=== PATIENT | male | born 1985 | race Caucasian/White ===

== ENCOUNTER → 2020-09-23 | Outpatient (CLI) | payer OTHER ==
--- NOTE | 2020-09-24 11:45 | SLEEPCENT ---
NOCTURNAL POLYSOMNOGRAPHY DATE: 09/23/2020 ORDERED BY: IVON Lance Nocturnal polysomnography was performed for evaluation of sleep physiology in this patient with a history of excessive somnolence, nonrestorative sleep, irregular breathing patterns in sleep, and a history of asthma. 8 hours and 3 minutes of data were reviewed. There were 356.5 minutes of sleep identified. Sleep latency was prolonged at 38.5 minutes. REM latency was prolonged at 162 minutes. Sleep architecture showed fragmentation. There were two REM cycles. Overall sleep efficiency was 74.9%. The electrocardiogram showed a sinus rhythm with an average heart rate of 68 beats per minute; rate range 50 to 100. EEG showed fairly normal waveforms for wake and sleep. No focal events were identified. There were 39 respiratory events identified of 10 seconds in duration or greater for an apnea-hypopnea index of 6.6. The events were primarily obstructive, though 5 mixed and central apneas were also seen. Respiratory events were not exclusive to sleep stage and were not exclusive to any particular body position. Arousals from respiratory events when arousals from snoring were included occurred 3.5 times per hour. There was significant limb activity in the EMG leads, but no trains of events. Limb movement arousal index was borderline at 8.1. IMPRESSION: Obstructive sleep apnea syndrome (G47.33), apnea-hypopnea index 6.6. RECOMMENDATION: Given the patient's symptoms, referral [facility] to [facility] is recommended. In the interim, alcohol and sedative avoidance should be practiced and caution exercised during the operation of motor vehicles.
== END ==
LOC: M SLEEP 20:00
PROVIDERS: ATTEND Nurse Practitioner Family
DX: R06.83 Snoring (principal)

== ENCOUNTER → 2020-10-26 | Outpatient (CLI) | payer OTHER ==
--- NOTE | 2020-10-29 15:39 | SLEEPCENT ---
NOCTURNAL POLYSOMNOGRAPHY DATE: 10/26/2020 ORDERED BY: Bere Cohen. Nocturnal polysomnography was performed for the titration of pressure therapy in this patient with obstructive sleep apnea syndrome. For testing, a [employer]Med AirGel F20 full face mask of small size was used. 4 cm of water pressure was applied to the circuit, and the lights were extinguished. 7 hours and 30 minutes of data were reviewed. There were 382.5 minutes of sleep identified. Sleep latency was normal at 7.5 minutes. REM latency was mildly delayed at 145 minutes. Sleep architecture improved late in the study. There were 2 REM cycles noted. Overall sleep efficiency was 86.8%. The electrocardiogram showed a sinus rhythm with an average heart rate of 62 beats per minute. EEG showed normal waveforms for awake and sleep. Respiratory events were fully palliated with CPAP at a pressure of +5, and remaining measures of sleep physiology were normal. IMPRESSION: Obstructive sleep apnea syndrome (G47.33). RECOMMENDATION: Nightly use of pressure therapy, 5 cm of water. cc: ROSI Mendez
== END ==
LOC: M SLEEP 20:00
PROVIDERS: ATTEND Nurse Practitioner Family
DX: G47.33 Obstructive sleep apnea (adult) (pediatric) (principal)

== ENCOUNTER 2021-10-22 06:50 | Day surgery (SDC) | payer OTHER ==
[~2021-10-22] VITALS: Ht 170.2 cm; Wt 74.1 kg
[~2021-10-22 06:50] MED LIST: ADV500INH INH; ALBU2.5V10 INH; AMLO10TA PO; GABA600T4 PO; LEXA1TAB2 PO; LIDOCAINE 2% 100MG/5ML SDV (FOR ANES.) As Ordered ONE; NS 1,000 ML IV ONE; SING10TA32 PO; propofoL 200 MG/20 ML VIAL As Ordered ONE
[2021-10-22 08:58] VITALS: BP_SYST 124
[2021-10-22 09:00] VITALS: BP_DIAS 81
== END 2021-10-22 09:01 | disposition home or self-care (01) ==
LOC: M OPP 06:50
PROVIDERS: ATTEND Internal Medicine Gastroenterology
DX: K63.5 Polyp of colon (principal); K62.5 Hemorrhage of anus and rectum; K64.0 First degree hemorrhoids; K64.4 Residual hemorrhoidal skin tags; R19.7 Diarrhea, unspecified; Z79.51 Long term (current) use of inhaled steroids; Z79.891 Long term (current) use of opiate analgesic; Z79.899 Other long term (current) drug therapy; F17.210 Nicotine dependence, cigarettes, uncomplicated

== ENCOUNTER → 2022-07-23 | Outpatient (CLI) | payer OTHER ==
[~2022-07-23] MED LIST changes: +GASTROGRAFIN SOLUTION 30ML As Ordered ONE; +ISOVUE-370 76% 100ML VIAL As Ordered ONE; -LIDOCAINE 2% 100MG/5ML SDV (FOR ANES.) As Ordered ONE; +MONT-5 PO; -NS 1,000 ML IV ONE; -SING10TA32 PO; -propofoL 200 MG/20 ML VIAL As Ordered ONE
== END ==
LOC: M RAD 14:10
PROVIDERS: ATTEND Internal Medicine Hematology & Oncology
DX: R23.1 Pallor (principal)
CPT/HCPCS: 70491; 71260; 74177; Q9963; Q9967

== ENCOUNTER → 2022-08-19 | Outpatient (REF) ==
[~2022-08-19] MED LIST changes: -GASTROGRAFIN SOLUTION 30ML As Ordered ONE; -ISOVUE-370 76% 100ML VIAL As Ordered ONE
== END ==
LOC: M PLAIMG 09:42
PROVIDERS: ATTEND Internal Medicine
DX: R06.02 Shortness of breath (principal)

== ENCOUNTER → 2022-08-24 | Outpatient (REF) | LOC: M PLAIMG 09:57 | PROVIDERS: ATTEND Internal Medicine | DX: R06.02 Shortness of breath (principal); M25.521 Pain in right elbow; M25.522 Pain in left elbow; M25.531 Pain in right wrist; M25.532 Pain in left wrist; M25.541 Pain in joints of right hand; M25.542 Pain in joints of left hand; M25.511 Pain in right shoulder; M25.512 Pain in left shoulder; M25.571 Pain in right ankle and joints of right foot; M25.572 Pain in left ankle and joints of left foot ==

== ENCOUNTER → 2022-11-17 | Outpatient (CLI) | payer OTHER | LOC: M RAD 09:27 | PROVIDERS: ATTEND Physician Assistant Medical | DX: J33.9 Nasal polyp, unspecified (principal) ==

== ENCOUNTER 2023-06-10 09:14 | Day surgery (SDC) | payer OTHER ==
[~2023-06-10] VITALS: Ht 175.3 cm; Wt 81.0 kg
[2023-06-10] MEDS ORDERED: CHOL400T PO (09:34)
[2023-06-10] MEDS: LR 1,000 ML IV SCH (10:10)
[2023-06-10] MEDS ORDERED: MIDAZOLAM INJ 2MG/2ML VIAL As Ordered ONE (11:00)
[2023-06-10] MEDS ORDERED: propofoL 200 MG/20 ML VIAL As Ordered ONE (11:00)
[2023-06-10] MEDS ORDERED: fentaNYL 250 MCG/5 ML INJECTION As Ordered ONE (11:00)
[2023-06-10] MEDS ORDERED: ONDANSETRON 4MG 2ML VIAL As Ordered ONE (11:00)
[2023-06-10] MEDS ORDERED: ROCURONIUM BROMIDE 50MG/5ML VIAL As Ordered ONE (11:01)
[2023-06-10] MEDS ORDERED: LIDOCAINE 2% 100MG/5ML SDV (FOR ANES.) As Ordered ONE (11:01)
[2023-06-10] MEDS ORDERED: LIDOCAINE W/EPINEPHRINE 1% 20ML VIAL As Ordered ONE (11:32)
[2023-06-10] MEDS ORDERED: ACETAMINOPHEN 1000MG 100ML IV BAG As Ordered ONE (11:33)
[2023-06-10] MEDS ORDERED: dexmedeTOMIDine (4MCG/ML)200MCG/50ML BTL (PRECEDEX) As Ordered ONE (11:37)
[2023-06-10] MEDS ORDERED: LACRILUBE (AKWA TEARS) OPHTH OINT 3.5GM As Ordered ONE (11:40)
[2023-06-10] MEDS ORDERED: SUGAMMADEX SODIUM 500 MG/5 ML VIAL (BRIDION) As Ordered ONE (12:37)
[2023-06-10] MEDS: EPINEPHrine 1MG/ML INJ 30ML MD-VIAL As Ordered ONE (12:51)
[2023-06-10] MEDS: METHYLENE BLUE 0.5% (5MG/ML) 10 ML AMP (PROVAYBLUE) As Ordered ONE (12:52)
[2023-06-10] MEDS ORDERED: fentaNYL 100 MCG/2 ML INJECTION As Ordered ONE (14:53)
[2023-06-10] MEDS ORDERED: LR 1,000 ML IV SCH (15:40)
[2023-06-10] MEDS ORDERED: HYDROMORPHONE HCL 0.5 MG/ 0.5 ML SYRINGE IV PRN (15:40)
[2023-06-10] MEDS ORDERED: fentaNYL 100 MCG/2 ML INJECTION IV PRN (15:40)
[2023-06-10] MEDS: ONDANSETRON 4MG 2ML VIAL IV PRN (15:48)
[2023-06-10] MEDS: oxyCODONE 5MG TAB PO PRN (15:50)
[2023-06-10 16:28] VITALS: BP 143/86; TEMP 98.9; O2SAT 96
== END 2023-06-10 17:00 | disposition home or self-care (01) ==
LOC: M SDC 09:14
PROVIDERS: ATTEND Otolaryngology
DX: J32.8 Other chronic sinusitis (principal); J34.2 Deviated nasal septum; J33.8 Other polyp of sinus; J34.89 Other specified disorders of nose and nasal sinuses; I10 Essential (primary) hypertension; G47.30 Sleep apnea, unspecified; J45.909 Unspecified asthma, uncomplicated; Z79.899 Other long term (current) drug therapy; F17.210 Nicotine dependence, cigarettes, uncomplicated
CPT/HCPCS: 30520; 31253; 31267; 61782; 88300; 88305; C2625; J0131; J0171; J1100; J2250; J2405; J3010; Q9968

== ENCOUNTER → 2024-11-16 | Outpatient (REF) | payer OTHER ==
[~2024-11-16] MED LIST changes: -ADV500INH INH; +ADVA1AER10 INH; +AMLO-751 PO; -AMLO10TA PO; +CHOL400T PO; +GABA-1490 PO; -GABA600T4 PO
[2024-11-16 18:49] LABS: EOS # 0.2 10^3/uL (0.0-0.5); EOSINOPHIL,TOTAL CALCULATED 200.0 mm3 (0-740)
[2024-11-25 02:53] LABS: BERMUDA GRASS IGE 1.61 kU/L (<0.10); BIRCH IGE 0.60 kU/L (<0.10); D001 IGE D PTERONYSSINUS 0.19 kU/L (<0.10); D002-IGE D FARINAE 0.17 kU/L (<0.10); E001-IGE CAT DANDER 0.25 kU/L (<0.10); E005-IGE DOG DANDER 0.19 kU/L (<0.10); ELM IGE 0.62 kU/L (<0.10); I006 IGE COCKROACH < 0.10 kU/L (<0.10); M006 IGE ALTERNIA ALTERNATA 6.85 kU/L (<0.10); M1-PENICILLIUM NOTATUM < 0.10 kU/L (<0.10); MOUSE URINE IGE < 0.10 kU/L (<0.10); OAK IGE 0.49 kU/L (<0.10); T001-IGE MAPLE BOX ELDER 0.34 kU/L (<0.10); T006-IGE MOUNTAIN CEDAR 0.19 kU/L (<0.10); T014 COTTONWOOD IGE 0.55 kU/L (<0.10); TIMOTHY GRASS IGE 4.53 kU/L (<0.10); WALNUT TREE IGE 1.29 kU/L (<0.10); WHITE ASH IGE 1.69 kU/L (<0.10); WHITE MULBERRY IGE < 0.10 kU/L (<0.10)
== END ==
LOC: M LAB REF 17:38
PROVIDERS: ATTEND Internal Medicine Pulmonary Disease
DX: J45.40 Moderate persistent asthma, uncomplicated (principal)

== ENCOUNTER 2025-02-05 13:05 | Outpatient (CLI) | payer OTHER ==
[~2025-02-05] VITALS: Ht 175.3 cm; Wt 75.0 kg
[2025-02-05 13:30] VITALS: BP 158/87; O2SAT 97
[2025-02-05] MEDS: OMALIZUMAB 150MG/1ML SYRINGE SC ONE (13:42)
== END 2025-02-05 14:10 | disposition home or self-care (01) ==
LOC: M INFU 13:05
PROVIDERS: ATTEND Internal Medicine Pulmonary Disease
DX: J45.50 Severe persistent asthma, uncomplicated (principal)
CPT/HCPCS: 96372; J2357

== ENCOUNTER 2025-02-19 12:57 | Outpatient (CLI) | payer OTHER ==
[~2025-02-19] VITALS: Ht 175.3 cm; Wt 75.0 kg
[2025-02-19] MEDS: OMALIZUMAB 150MG/1ML SYRINGE SC ONE (13:13)
[2025-02-19 13:16] VITALS: BP 151/80; O2SAT 98
[2025-02-19 13:35] VITALS: BP 150/84; O2SAT 97
== END 2025-02-19 13:35 | disposition home or self-care (01) ==
LOC: M INFU 12:57
PROVIDERS: ATTEND Internal Medicine Pulmonary Disease
DX: J45.50 Severe persistent asthma, uncomplicated (principal)
CPT/HCPCS: 96372; J2357

== ENCOUNTER 2025-03-05 13:08 | Outpatient (CLI) | payer OTHER ==
[~2025-03-05] VITALS: Ht 175.3 cm; Wt 75.0 kg
[2025-03-05 13:25] VITALS: BP 142/88; O2SAT 99
== END 2025-03-05 13:35 | disposition home or self-care (01) ==
LOC: M INFU 13:08
PROVIDERS: ATTEND Internal Medicine Pulmonary Disease
DX: J45.50 Severe persistent asthma, uncomplicated (principal)
CPT/HCPCS: 96372; J2357